=== PATIENT | male | born 1990 | race Caucasian/White ===

== ENCOUNTER 2025-04-03 18:10 | Inpatient (IN) | payer MEDICAID ==
[2025-04-03 18:27] LABS: BASOPHILS PERCENT AUTO 0.7 % (0.0-1.0); EOSINOPHILS PERCENT AUTO 0.1 % (1.0-3.0); LYMPHOCYTES PERCENT AUTO 18.5 % (20.5-50.1); MONOCYTES PERCENT AUTO 11.7 % (2-8); NEUTROPHILS PERCENT AUTO 69.0 % (42.2-75.2); PLATELET COUNT,PLT 101 10^3/uL (150-450); RED BLOOD CELL COUNT 4.65 10^6/uL (4.6-6.2); WHITE BLOOD CELL COUNT,WBC 7.2 10^3/uL (5.0-10.0)
[2025-04-03] MEDS: MVI, Adult with Vitamin K 10 ML, Folic Acid 1 MG, Thiamine 100 MG in Lactated Ringers 1... IV ONE (18:45)
[2025-04-03 18:59] LABS: A/G RATIO 1.1; ALANINE AMINOTRANSFERASE,ALT 137 U/L (16-63); ASPARTATE AMNIOTRANSFERASE,AST 127 U/L (15-37); BILIRUBIN TOTAL 3.0 mg/dL (0.2-1.0); BLOOD UREA NITROGEN,BUN 5 mg/dL (7-18); CARBON DIOXIDE,CO2 23 mmol/L (21-32); CHLORIDE,CL 96 mmol/L (98-107); CREATININE 0.83 mg/dL (0.70-1.30); EST CRCL DRUG DOSING (CG) 112.88 mL/min; GLUCOSE RANDOM 172 mg/dL (70-99); POTASSIUM,K 3.7 mmol/L (3.5-5.1); PROTEIN TOTAL,TP 8.4 g/dL (6.4-8.2); SODIUM,NA 136 mmol/L (136-145)
[2025-04-03 19:06] LABS: ESTIMATED GFR 116 mL/min (>=60); ETHANOL BLOOD MEDICAL < 3 mg/dL (0)
[2025-04-03 19:07] LABS: LACTIC ACID 6.7 mmol/L (0.4-2.0)
[2025-04-03 19:36] LABS: APPEARANCE,URINE SLIGHTLY CLOUDY (CLEAR); GLUCOSE,URINE NEGATIVE (NEGATIVE); OCCULT BLOOD,URINE NEGATIVE (NEGATIVE)
[2025-04-03] MEDS ORDERED: hydrALAZINE 20 MG/ML SDV IVPUSH PRN (19:56)
[2025-04-03] MEDS ORDERED: Flumazenil 0.1 MG/ML 5 ML MDV IVPUSH PRN (19:56)
[2025-04-03] MEDS ORDERED: Metoprolol Tartrate 5 MG/5 ML SDV IVPUSH PRN (19:56)
[2025-04-03] MEDS ORDERED: Magnesium Hydroxide 400 MG/5 ML Susp 30 ML Cup PO PRN (19:57)
[2025-04-03] MEDS ORDERED: Sennosides/Docusate Sodium 50-8.6 MG Tab PO PRN (19:57)
[2025-04-03 20:06] LABS: EPITHELIAL CELLS,URINE OCCASIONAL /HPF (NOT SEEN)
[2025-04-03] MEDS: Scopalamine 1mg/3day Transdermal Patch ONE (20:58)
[2025-04-03] MEDS: Ondansetron 4 MG/2 ML SDV ONE (20:58)
[2025-04-03] MEDS: Scopalamine 1mg/3day Transdermal Patch TOP ONE (21:12)
[2025-04-03] MEDS: Ondansetron 4 MG/2 ML SDV IVPUSH PRN (21:15)
[2025-04-03] MEDS: Ampicillin/Sulbactam Na 1.5 GM in Sodium Chloride 0.9% 100 ML IV SCH (21:17)
[2025-04-04 06:23] LABS: BASOPHILS PERCENT AUTO 0.7 % (0.0-1.0); EOSINOPHILS PERCENT AUTO 0.3 % (1.0-3.0); LYMPHOCYTES PERCENT AUTO 17.4 % (20.5-50.1); MONOCYTES PERCENT AUTO 13.3 % (2-8); NEUTROPHILS PERCENT AUTO 68.3 % (42.2-75.2); PLATELET COUNT,PLT 71 10^3/uL (150-450); RED BLOOD CELL COUNT 3.75 10^6/uL (4.6-6.2); WHITE BLOOD CELL COUNT,WBC 5.8 10^3/uL (5.0-10.0)
[2025-04-04 07:07] LABS: ALANINE AMINOTRANSFERASE,ALT 92.0 U/L (16-63); ASPARTATE AMNIOTRANSFERASE,AST 82.0 U/L (15-37); BILIRUBIN TOTAL 3.0 mg/dL (0.2-1.0); BLOOD UREA NITROGEN,BUN 5.0 mg/dL (7-18); CARBON DIOXIDE,CO2 29.0 mmol/L (21-32); CHLORIDE,CL 103.0 mmol/L (98-107); CREATININE 0.82 mg/dL (0.70-1.30); EST CRCL DRUG DOSING (CG) 112.66 mL/min; GLUCOSE RANDOM 112.0 mg/dL (70-99); POTASSIUM,K 3.2 mmol/L (3.5-5.1); PROTEIN TOTAL,TP 6.3 g/dL (6.4-8.2); SODIUM,NA 139.0 mmol/L (136-145)
[2025-04-04 07:10] LABS: A/G RATIO 1.03; ESTIMATED GFR 117.0 mL/min (>=60)
[2025-04-04] MEDS: Potassium Chloride 10 MEQ Tab.ER PO ONE (09:55)
[2025-04-04] MEDS: Multivitamins with Iron/Calcium/Folic Acid/Minerals Tab PO SCH (21:52)
[2025-04-04] MEDS: Sodium Chloride 0.9% 10 ML Syringe FLUSH PRN (23:20)
[2025-04-05 06:49] LABS: BASOPHILS PERCENT AUTO 0.3 % (0.0-1.0); EOSINOPHILS PERCENT AUTO 1.7 % (1.0-3.0); LYMPHOCYTES PERCENT AUTO 12.0 % (20.5-50.1); MONOCYTES PERCENT AUTO 8.1 % (2-8); NEUTROPHILS PERCENT AUTO 77.9 % (42.2-75.2); PLATELET COUNT,PLT 72 10^3/uL (150-450); RED BLOOD CELL COUNT 3.84 10^6/uL (4.6-6.2); WHITE BLOOD CELL COUNT,WBC 6.9 10^3/uL (5.0-10.0)
[2025-04-05 07:05] LABS: ALANINE AMINOTRANSFERASE,ALT 146.0 U/L (16-63); ASPARTATE AMNIOTRANSFERASE,AST 176.0 U/L (15-37); BILIRUBIN TOTAL 2.9 mg/dL (0.2-1.0); BLOOD UREA NITROGEN,BUN 4.0 mg/dL (7-18); CARBON DIOXIDE,CO2 30.0 mmol/L (21-32); CHLORIDE,CL 104.0 mmol/L (98-107); CREATININE 0.75 mg/dL (0.70-1.30); EST CRCL DRUG DOSING (CG) 123.18 mL/min; GLUCOSE RANDOM 112.0 mg/dL (70-99); POTASSIUM,K 3.5 mmol/L (3.5-5.1); PROTEIN TOTAL,TP 6.6 g/dL (6.4-8.2); SODIUM,NA 139.0 mmol/L (136-145)
[2025-04-05 07:33] LABS: A/G RATIO 1.0; ESTIMATED GFR 120.0 mL/min (>=60)
[2025-04-05] MEDS ORDERED: Pharmacy Consult Order SCH (10:30)
[2025-04-06 06:48] LABS: BASOPHILS PERCENT AUTO 0.6 % (0.0-1.0); EOSINOPHILS PERCENT AUTO 2.0 % (1.0-3.0); LYMPHOCYTES PERCENT AUTO 16.2 % (20.5-50.1); MONOCYTES PERCENT AUTO 13.2 % (2-8); NEUTROPHILS PERCENT AUTO 68.0 % (42.2-75.2); PLATELET COUNT,PLT 86 10^3/uL (150-450); RED BLOOD CELL COUNT 4.23 10^6/uL (4.6-6.2); WHITE BLOOD CELL COUNT,WBC 5.4 10^3/uL (5.0-10.0)
[2025-04-06 07:25] LABS: A/G RATIO 0.9; ALANINE AMINOTRANSFERASE,ALT 162.0 U/L (16-63); ASPARTATE AMNIOTRANSFERASE,AST 164.0 U/L (15-37); BILIRUBIN TOTAL 2.6 mg/dL (0.2-1.0); BLOOD UREA NITROGEN,BUN 5.0 mg/dL (7-18); CARBON DIOXIDE,CO2 30.0 mmol/L (21-32); CHLORIDE,CL 102.0 mmol/L (98-107); CREATININE 0.69 mg/dL (0.70-1.30); EST CRCL DRUG DOSING (CG) 133.89 mL/min; GLUCOSE RANDOM 113.0 mg/dL (70-99); POTASSIUM,K 3.6 mmol/L (3.5-5.1); PROTEIN TOTAL,TP 7.5 g/dL (6.4-8.2); SODIUM,NA 141.0 mmol/L (136-145)
[2025-04-06 07:28] LABS: ESTIMATED GFR 123.0 mL/min (>=60)
== END 2025-04-06 11:55 | disposition home or self-care (01) | DRG 897 ==
LOC: DL.ED 18:10 → DL.MS 19:17 → DL.ED 19:27
PROVIDERS: ADMIT Internal Medicine; ATTEND Internal Medicine
PROC: HZ2ZZZZ Detoxification Services for Substance Abuse Treatment (ICD-10-PCS; principal; 2025-04-03)
DX: F10.139 Alcohol abuse with withdrawal, unspecified (principal); E87.20 Acidosis, unspecified; R56.9 Unspecified convulsions; I10 Essential (primary) hypertension; R73.9 Hyperglycemia, unspecified; K70.10 Alcoholic hepatitis without ascites; E80.6 Other disorders of bilirubin metabolism; F17.200 Nicotine dependence, unspecified, uncomplicated; I95.2 Hypotension due to drugs; E87.6 Hypokalemia; Z79.899 Other long term (current) drug therapy; Z88.8 Allergy status to other drugs, medicaments and biological substances
CPT/HCPCS: 36415; 80053; 80307; 81001; 83605; 83735; 85025; 86140; 93005; 93010; 96365; 96375; 99223; 99232; 99239; 99285; 99285-25; A9270-GY; J0295; J1808; J1953; J2405; J2470; J3360; J3411; J3490; J7030; J7042; J7120